=== PATIENT | male | born 1945 | race Caucasian/White ===

== ENCOUNTER 2016-12-24 14:23 | Inpatient (IN) | payer MEDICARE, MEDICAID ==
[2016-12-24] VITALS (12 sets, daily range): BP systolic 91–112; BP diastolic 54–76; PULSE 75–100; RESP 13–21; Ht 170.2 cm; Wt 90.0 kg
[~2016-12-24] VITALS: Ht 170.2 cm; Wt 90.0 kg
[2016-12-24] MEDS ORDERED: FUROSEMIDE 40 MG INJ IV ONE (15:30)
[2016-12-24 16:05] LABS: Allen Test ACCEPTAB; Arterial Base Excess -0.8 mmol/L (-3.0-3); Arterial COHb 0.3 % (0.0-3.0); Arterial Fraction of Oxyhgb 82.1 % (93.0-99.0); Arterial HCO3 24.1 mmol/L (22.0-26.0); Arterial MetHb 0.3 % (0.0-1.5); Arterial Total Hemglobin 11.9 g/dl (12.0-18.0); MODE MASK - NRB
[2016-12-24] MEDS ORDERED: VANCOMYCIN IV PER PHARMACY XX SCH (17:00)
[2016-12-24] MEDS: ALBUTEROL/IPRATROPIUM (NEB) 3 ML AMP HHN SCH ×2 (17:01→20:05)
[2016-12-24 17:12] LABS: INR 1.11; PROTIME 14.3 Sec (12.2-14.2); PT RATIO 1.1
[2016-12-24 17:13] LABS: PARTIAL THROMBOPLASTIN TIME 38.8 Sec (25.0-35.0)
[2016-12-24 17:14] LABS: CREATINE KINASE 27 IU/L (23-200); MAGNESIUM 2.1 mg/dl (1.7-2.5)
[2016-12-24 17:35] LABS: CK-MB 1.46 ng/ml (0.0-2.4); TROPONIN-I < 0.012 ng/ml (0.00-0.12)
[2016-12-24] MEDS ORDERED: VANCOMYCIN 1.75 GM in NS 500 ML IVPB SCH (18:00)
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
[2016-12-24] MEDS: FAMOTIDINE 20 MG INJ IV SCH (20:17)
--- NOTE | 2016-12-24 20:19 | RADRPT ---
PROCEDURE: Ultrasound of the bilateral lower extremity venous system. CLINICAL INDICATION: Bilateral leg pain and swelling, deep venous thrombosis TECHNIQUE: Watkins scale with and without compression, color doppler, spectral doppler of the venous system of the bilateral lower extremities was performed. Venous augmentation maneuvers were utilized . COMPARISON: No prior studies are available for comparison. FINDINGS: RIGHT: Common femoral vein: Patent. Superficial femoral vein: Patent. Popliteal vein: Patent. Calf veins: Patent. No soft tissue abnormalities are identified. LEFT: Common femoral vein: Patent. Superficial femoral vein: Patent. Popliteal vein: Patent. Calf veins: Patent. No soft tissue abnormalities are identified. IMPRESSION: No evidence of a deep vein thrombosis within the bilateral lower extremities. RPTAT: AADD .Rome Storm MD, Date Time Electronically viewed and signed by .Rome Storm MD, on 12/24/2016 20:19 .B/
[2016-12-24] MEDS: SALMETEROL/FLUTICASONE 250/50 INHA INH SCH (20:27)
[2016-12-24] MEDS: MUPIROCIN 2% 22 GM OINT TOP SCH (20:27)
[2016-12-24] MEDS ORDERED: FUROSEMIDE 40 MG INJ IV SCH (21:00)
[2016-12-24] MEDS: CEFEPIME 1GM/50 ML (PMX) 50 ML IVPB SCH (21:41)
[2016-12-24 23:11] LABS: TROPONIN-I 0.02 ng/ml (0.00-0.12)
[2016-12-24 23:13] LABS: CK-MB 1.28 ng/ml (0.0-2.4)
[2016-12-25] VITALS (28 sets, daily range): BP systolic 66–118; BP diastolic 42–96; PULSE 87–120; RESP 14–34
[2016-12-25] MEDS: LORAZEPAM 2 MG INJ IV PRN ×2 (01:58→17:47)
[2016-12-25] MEDS ORDERED: ALTEPLASE (CATHFLO) 2 MG INJ CATHETER PRN (02:30)
[2016-12-25 04:35] LABS: ADD SCAN DIFF NO
[2016-12-25] MEDS: ALBUTEROL/IPRATROPIUM (NEB) 3 ML AMP HHN SCH ×5 (04:43→16:31)
[2016-12-25 05:01] LABS: ABNORMAL IP MESSAGE 1; HEMOGLOBIN 8.9 g/dl (14.0-18.0); MEAN CORPUSCULAR VOLUME 103.1 fl (82.0-101.0); MEAN PLATELET VOLUME 10.3 fl (7.4-10.4); PLATELET COUNT 55 10^3/UL (140-415); RED BLOOD COUNT 2.62 10^6/ul (4.70-6.10); RED CELL DISTRIBUTION WIDTH 16.9 % (11.5-14.5); WHITE BLOOD COUNT 6.6 10^3/ul (4.8-10.8)
[2016-12-25 05:07] LABS: ALBUMIN 2.8 g/dl (3.3-4.9); POTASSIUM 4.3 mmol/L (3.5-5.1)
[2016-12-25 05:10] LABS: CREATININE 1.54 mg/dl (0.61-1.24)
[2016-12-25 05:11] LABS: CALCIUM 8.1 mg/dl (8.4-10.2)
[2016-12-25 05:18] LABS: TROPONIN-I 0.022 ng/ml (0.00-0.12)
--- NOTE | 2016-12-25 05:46 | HP ---
DATE OF ADMISSION: 12/24/2016 PRESENTING COMPLAINT: Respiratory failure. HISTORY OF PRESENTING COMPLAINT: Mr. Sandoval is a 71-year-old male with a history of nonsmall heather l carcinoma of the lung for which, per report, he has undergone chemo and radiation, chronic respira tory failure, sepsis, and bilateral pneumonia who was sent to the emergency room today from the [facility] [place] because of worsening respiratory distress. The details regarding t he patient's history are very unclear because there is no detailed H and P on the chart or in the [facility] record, and the patient is completely unable to give any history as he is mildly encephalopat hic from hypoxemia. The patient's family is not at the bedside. I tried to speak with his by telephone and obtain the history from her, but she was too upset about her 's condition to gi ve me a detailed history. Based on my preliminary assessment, this patient is in severe respiratory failure and is refusing aggressive intervention like BiPAP and endotracheal intubation, and he is s aturating in the 80s on nonrebreather mask. He is currently not requiring pressor therapy yet, and it is my understanding that he has been on broad-spectrum antibiotics. Despite all that, he is stil l not doing very well. I have ordered that he get immediately 1 dose of IV Lasix 40 mg, and further interventions will be summarized below. PAST MEDICAL HISTORY: 1. Hypothyroidism. 2. Zrq-kjhcw-wysq lung cancer status post radiation and chemo. 3. Chronic obstructive pulmonary disease. 4. Bilateral pneumonia. 5. Hypertension. 6. Diabetes mellitus. 7. Obesity. 8. Chronic kidney disease. 9. Dyslipidemia. PAST SURGICAL HISTORY: Unknown. ALLERGIES: 1. BACTRIM. 2. CODEINE. 3. HYDROCODONE. PREVIOUS MEDICATIONS: 1. Bactroban. 2. DuoNeb. 3. Allopurinol. 4. Xanax. 5. Lipitor. 6. Tessalon Perles. 7. Pulmicort. 8. Sliding scale insulin. 9. Pravastatin. 10. Nystatin. 11. Flomax. SOCIAL HISTORY: Previous smoker. That is all we know. FAMILY HISTORY: Unobtainable due to the patient's condition. PHYSICAL EXAMINATION: VITAL SIGNS: Temperature 98.2, pulse 93, respirations 15, blood pressure 112/55 on admission, satur ation with goal between 84 and 95% on nonrebreather mask. GENERAL: Obese, elderly male who does not look good, very ill-looking, either diffusely edematous _ ___ obesity with obvious respiratory distress despite nonrebreather mask; however, the patient is co nscious enough to aggressively refuse the BiPAP mask when we attempt to put it on him and also consc ious enough to say "no, I don't want it" when he was asked if he would like to be intubated. HEENT: Other than that, his head was normocephalic, and he does have chronic ischemic changes showi ng a level of ecchymosis diffusely, but there was no evidence of acute trauma. His pupils were equa l and reactive. He had a nonrebreather mask in place. NECK: Assessment was difficulty due to obesity, but he did have JVD on the left side. CARDIOVASCULAR: Heart sounds were S1 and S2 with stage III/ systolic murmur. RESPIRATORY: Quiet reduced breath sounds bilaterally. I could not auscultate the bases due to obes ity. ABDOMEN: Full, soft, did not seem overtly tender, hypoactive bowel sounds were noted. EXTREMITIES: ____ ecchymotic in all 4 extremities. The patient was seen to move all 4 extremities at this time. NEUROLOGIC: Even though the patient is alert and is able to tell me his name and seems to know wher e he is, he does look slightly obtunded. PSYCHIATRIC: Could not be assessed. LABORATORY DATA: ABG: pH 7.3, pCO2 of 40, pO2 47.2, and bicarbonate 24.1. 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 WBC count is normal at 6.7. He also has bandemia. On his chemistry, his glucose was abnormal at 168 a nd calcium 8.1. Note that these are labs from early this morning at [place]. Serum sodium was 129. Potassium was normal. His chloride was 95 ____. BUN and creatinine were elevated at 54 and 1.30. Uric acid was normal. LFTs were normal. TSH was normal. Free T4 was normal. ____. A chest x-ra y I reviewed was suggestive of cardiomegaly and bilaterally effusions as well as bilateral infiltrat es. ASSESSMENT: A 71-year-old male sent to us from [place] for respiratory failure, ____. 1. Acute respiratory insufficiency with impending respiratory failure. 2. Severe sepsis with bandemia secondary to bilateral pneumonia contributing to #1. 3. Bilateral pneumonia. 4. Probable congestive heart failure. 5. Diabetes mellitus with ____ control. 6. Chronic thrombocytopenia with megaloblastosis as well as hypochromasia concerning for probable l iver injury or chronic liver disease. 7. Dyslipidemia. 8. Obesity. 9. Positive methicillin-resistant Staphylococcus aureus nares. 10. Chronic kidney disease. Baseline creatinine not known at this time. 11. Chronic hypothyroidism. 12. History of hypertension with good control. 13. Hyponatremia. 14. History of vyr-mnhkx-zqtm carcinoma of the lung status post radiation and chemo. PLAN: 1. ICU admit. 2. Ideally, the patient will benefit from BiPAP therapy, but as mentioned earlier, the patient is v chago clear that he does not want this intervention even while understanding that he might if he d oes not get it. It is unclear exactly how much the patient understands, and as such, I have reached out to the patent's to determine goals of care. I spoke with the patient's daughter and his w marga. I explained the fact that the patient could not continue on a simple mask indefinitely based o n his current clinical status. I explained that, at this point, ____ the patient was on BiPAP thera py, but he is aggressively refusing this. He might require endotracheal intubation if he does not i sreedharove. I asked if they had discussed goals of care, and she reported that they had not. I told he r to discuss with her purona-pc-nvr and get back to me. About half an hour later, she called me navid connelly to let me know that the family is there and they do not want the patient to be intubated and they do not want chest compressions but they want everything else. I did have ____ in that case, BiPAP w ould be the next plan of care bur the patient is refusing this adamantly, and she said it is okay to keep the patient off BiPAP. We will leave the patient off BiPAP for now and try and aggressively o ptimize respiratory status using diuresis as well as ____ therapy. We will continue empiric broad s pectrum antibiotics, obtain pulmonary, infectious disease, as well as cardiology consultation to ass ess ____. The patient will also require nephrology consultation as well. The patient's prognosis i s quite grim and guarded. Further interventions will depend on his response ____ intervention and i f his respiratory status improves. Prophylaxis, he will be on intravenous PPI therapy versus H2 blo cker and is not a candidate for anticoagulation because of thrombocytopenia. He was put on ____. I will also rule out thrombosis in all 4 extremities. As mentioned earlier, further intervention jabari l depend on response to current interventions. Dictated By: NELSON GALLO MD, BA/RITO Conf#: [id number] DID#: [id number]
[2016-12-25] MEDS ORDERED: FUROSEMIDE 40 MG INJ IV SCH (06:00)
[2016-12-25 06:07] LABS: CK-MB 1.43 ng/ml (0.0-2.4)
[2016-12-25] MEDS ORDERED: DEXTROSE 50% 50 ML SYRINGE ONE (06:54)
[2016-12-25 06:56] LABS: CHOL/HDL RATIO 3.1 RATIO
[2016-12-25] MEDS: DEXTROSE 50% 50 ML SYRINGE IV PRN ×2 (07:20→13:10)
[2016-12-25 07:55] LABS: ADD UMIC YES; URINE BILIRUBIN (Dip) NEGATIVE (NEGATIVE); URINE BLOOD (Dip) 1+ (NEGATIVE); URINE COLOR LT. YELLOW (YELLOW); URINE GLUCOSE (Dip) NEGATIVE (NEGATIVE); URINE KETONES (Dip) NEGATIVE (NEGATIVE); URINE LEUKOCYTE ESTERASE (Dip) NEGATIVE (NEGATIVE); URINE NITRITE (Dip) NEGATIVE (NEGATIVE); URINE TOTAL PROTEIN (Dip) NEGATIVE (NEGATIVE); URINE UROBILINOGEN (Dip) 0.2 E.U./dL (0.1-1.0)
[2016-12-25 08:07] LABS: URINE RBCS 0-2 /HPF (0)
[2016-12-25] MEDS: SALMETEROL/FLUTICASONE 250/50 INHA INH SCH (08:22)
[2016-12-25 08:54] LABS: LYMPHOCYTES # 0.3 10^3/ul (0.8-2.9); MONOCYTE # 0.1 10^3/ul (0.3-0.9); NEUTROPHIL # 2.8 10^3/ul (1.6-7.5)
[2016-12-25] MEDS: FAMOTIDINE 20 MG INJ IV SCH (08:59)
[2016-12-25] MEDS: CEFEPIME 1GM/50 ML (PMX) 50 ML IVPB SCH (08:59)
[2016-12-25] MEDS: ACCUCHECK XX SCH ×3 (09:00→16:13)
[2016-12-25] MEDS: MUPIROCIN 2% 22 GM OINT TOP SCH (09:00)
[2016-12-25] MEDS ORDERED: DEXTROSE 5%-0.9% NACL 1,000 ML IV SCH (10:00)
--- NOTE | 2016-12-25 11:04 | CONS ---
Date/Time of Note Date/Time of Note DATE: 12/25/16 TIME: 11:00 Assessment/Plan Assessment/Plan Additional Assessment/Plan Chest x-ray was reviewed from yesterday morning which is showing bilateral infiltrative changes. ABG and blood work also was reviewed. Next Assessment recommendations; next 1. Patient admitted with severe hypoxemic respiratory failure currently on BiPAP. 2. History of non-small cell lung cancer likely involving the left lower lobe status post radiation and chemotherapy. 3. Renal insufficiency. 4. Thrombocytopenia. 5. Hypertension. 6. History of diabetes. 7. Bilateral pneumonia. Continue current supportive care. Patient prognosis is extremely poor. Comfort care measures would be appropriate to initiate. Patient also can be transferred back to [facility]. Consultation Date/Type/Reason Admit Date/Time Dec 24, 2016 at 14:23 Initial Consult Date Type of Consultation: Pulmonary/critical care 24 HR Interval Summary Free Text/Dictation Patient condition remains tenuous at best. Offered over from [facility] for severe hypoxemia. Which was refractory to 100% nonrebreather. Remains essentially unresponsive now. Family has decided to make him a DNR. General exam; elderly male, on BiPAP. Unresponsive. Exam/Review of Systems Vital Signs Vitals Vital Signs Date Time Temp Pulse Resp B/P Pulse Ox O2 Delivery O2 Flow Rate FiO2 12/25/16 10:00 118 23 96/46 92 BIPAP 12/25/16 08:00 99.3 12/25/16 05:30 100 12/24/16 23:30 15.0 Intake and Output 12/24/16 12/24/16 12/25/16 15:00 23:00 07:00 Intake Total 50 ml Output Total 625 ml 295 ml Balance -575 ml -295 ml Exam H EENT examination; supple neck, JVD difficult to see because of short neck. Patient is edentulous. No neck masses. No thyromegaly. Chest examination KS: Diminished breath sounds throughout. S1-S2 audible, no murmurs. Regular rhythm. Abdomen examination; soft, nondistended. No organomegaly. Bowel sounds are sluggish. Extremity exam; no peripheral edema. VEGETABLES COOK exam is; patient is unresponsive. Results Result Diagram: 12/25/16 0400 12/25/16 0400 Results 24 hrs Laboratory Tests Test 12/24/16 15:46 3/11/17 16:30 12/24/16 17:46 12/24/16 21:40 Arterial Blood HCO3 24.1 Arterial Blood Base Excess -0.8 Arterial Blood Oxygen Saturation 82.6 L Jacobo Test ACCEPTAB Arterial Blood Gas Puncture Site Left Radial Arterial Blood Carboxyhemoglobin 0.3 Arterial Blood Date Drawn 12/24/2016 3:50:13 PM Arterial Blood Methemoglobin 0.3 Arterial Blood pCO2 (Temp correct) 40.8 Arterial Blood pH (Temp corrected) 7.390 Arterial Blood pO2 (Temp corrected) 47.2 *L Blood Gas A-a O2 Differential 625.0 H Blood Gas Actual Respiration Rate 22 Blood Gas Critical Value Read Back Bean CHOUDHARY RN Blood Gas Modality MASK - NRB Blood Gas Notified Time 12/24/2016 4:04:52 PM Blood Gas Notified Whom Harris DURÁN Blood Gas Specimen Source Blood arterial Blood Gas Temperature 37.0 FiO2 100.0 Oxyhemoglobin Percent 82.1 L Total Hemoglobin 11.9 L Activated Partial Thromboplast Time 38.8 H Creatine Kinase 27 Creatine Kinase Index 5.4 Creatinine Kinase MB (Mass) 1.46 INR International Normalized Ratio 1.11 Lactic Acid Level 0.8 Magnesium Level 2.1 Phosphorus Level 4.0 Prothrombin Time 14.3 H Prothrombin Time Ratio 1.1 Troponin I < 0.012 Urine Bilirubin NEGATIVE Urine Clarity CLEAR Urine Color LT. YELLOW Urine Glucose NEGATIVE Urine Hemoglobin 1+ H Urine Ketones NEGATIVE Urine Leukocyte Esterase NEGATIVE Urine Microscopic RBC 0-2 Urine Microscopic WBC NONE SEEN Urine Nitrite NEGATIVE Urine Specific Van Lear 1.010 Urine Total Protein NEGATIVE Urine Urobilinogen 0.2 E.U./dL Urine pH 5.0 Bedside Glucose 70 Test 12/24/16 22:36 12/25/16 02:06 12/25/16 04:00 12/25/16 06:56 Creatine Kinase 29 22 L Creatine Kinase Index 4.4 6.5 Creatinine Kinase MB (Mass) 1.28 1.43 Troponin I 0.020 0.022 Bedside Glucose 70 43 *L Albumin 2.8 L Anion Gap 14 Band Neutrophils % 51.0 H Blood Urea Nitrogen 57 H Calcium Level 8.1 L Carbon Dioxide Level 25 Chloride Level 97 Cholesterol Level 93 L Cholesterol/HDL Ratio 3.1 Creatinine 1.54 H Eosinophils # Eosinophils % Glucose Level 44 #*L HDL Cholesterol 30 L Hematocrit 27.0 L Hemoglobin 8.9 L Hemoglobin A1c 8.1 H LDL Cholesterol, Calculated 42 Lymphocytes # 0.3 L Lymphocytes % 4.0 L Mean Corpuscular Hemoglobin 34.0 H Mean Corpuscular Hemoglobin Concent 33.0 Mean Corpuscular Volume 103.1 H Mean Platelet Volume 10.3 Metamyelocytes # 0.1 Metamyelocytes % 1.0 H Monocytes # 0.1 L Monocytes % 1.0 Neutrophils # 2.8 Neutrophils % 43.0 Phosphorus Level 5.0 H Platelet Count 55 L Potassium Level 4.3 Red Blood Count 2.62 L Red Cell Distribution Width 16.9 H Sodium Level 132 L Triglycerides Level 116 White Blood Count 6.6 Test 12/25/16 07:19 12/25/16 07:44 12/25/16 09:15 Bedside Glucose 182 117 73 Medications Medications Current Medications Famotidine 20 mg 20 mg BID IV Last administered on 12/25/16 08:59; Admin Dose 20 MG; Start 12/24/16 at 21:00 Cefepime HCl (Maxipime 1gm/50 ml (Pmx)) 50 ml @ 100 mls/hr Q12 IVPB Last administered on 12/25/16 08:59; Admin Dose 100 MLS/HR; Start 12/24/16 at 21:00 Salmeterol Xinafoate/ Fluticasone (Advair 250/50 Diskus) 1 inh BID INH Last administered on 12/24/16 20:27; Admin Dose 1 INH; Start 12/24/16 at 21:00 Mupirocin 1 applic 1 applic BID TOP Last administered on 12/25/16 09:00; Admin Dose 1 APPLIC; Start 12/24/16 at 21:00; Stop 12/31/16 at 20:59 Vancomycin HCl/ Sodium Chloride (Vancocin/NS) 250 ml @ 83.333 mls/ hr Q24H IVPB ; Start 12/25/16 at 18:00 Lorazepam (Ativan) 0.25 mg Q1HWA PRN IV AGITATION/ANXIETY Last administered on 12/25/16 01:58; Admin Dose 0.25 MG; Start 12/24/16 at 23:30 Diagnostic Test (Pha) (Accucheck) 1 ea Q4 XX Last administered on 12/25/16 09: 00; Admin Dose 1 EA; Start 12/25/16 at 09:00 Dextrose 50 ml 50 ml PRN PRN IV DECREASED GLUCOSE Last administered on 07:20; Admin Dose 50 ML; Start 12/25/16 at 07:30 Dextrose/Sodium Chloride (D5-NS) 1,000 ml @ 40 mls/hr Q24H IV Last administered on 12/25/16 10:00; Admin Dose 40 MLS/HR; Start 12/25/16 at 10:00 SELWYN FOWLER Dec 25, 2016 11:04
--- NOTE | 2016-12-25 11:17 | PN ---
DATE: 12/25/2016 CARDIOLOGY FOLLOWUP SUBJECTIVE: Discussed with the staff. Rhythm strip was reviewed. The patient remains on BiPAP in the ICU. The patient has been taking the mask off. Discussed with the staff. Remains in sinus rhy thm, sinus tachycardia with frequent PVCs. MEDICATIONS: Reviewed. OBJECTIVE: VITAL SIGNS: Temperature 98.4, heart rate 110, blood pressure 103/58, respiration rate of 20, satur ating 91% on BiPAP. HEENT: Normocephalic, atraumatic. Appears to be in respiratory distress. CARDIOVASCULAR: Tachycardic. PULMONARY: Mild rhonchi, diffuse. GASTROINTESTINAL: Obese, soft. EXTREMITIES: Positive edema. NEUROLOGIC: Awake, responds appropriately. LABORATORY: Sodium 132, potassium 4.3, BUN of 57, creatinine 1.54, glucose 44. Lower extremity ult rasound shows no evidence of DVT of the bilateral lower extremities. ASSESSMENT AND PLAN: 1. Hypoxemic hypercapnic respiratory failure. 2. Chronic obstructive pulmonary disease. 3. History of lung carcinoma. 4. Sinus tachycardia secondary to above. 5. Diabetes with episodes hypoglycemia this morning. 6. Hypertension, currently stable. 7. Thyroid disorder. RECOMMENDATIONS: We will continue with the respiratory care. BiPAP as needed will be continued. C ontinue with the ICU care. Continue with diuresis for now. Code status DNR, and prognosis is guard ed. Dictated By: BRONWYN CRAWFORD/RITO Conf#: [id number] DID#: [id number]
--- NOTE | 2016-12-25 11:37 | RADRPT ---
PROCEDURE: XR Chest. CLINICAL INDICATION: Shortness of breath. TECHNIQUE: Single frontal view. COMPARISON: 12/24/2016. FINDINGS: The right arm PICC line is in satisfactory position. Patchy bilateral pulmonary airspace and inters titial disease is unchanged with left worse than right. The heart is enlarged. There is calcification in the aorta consistent with atherosclerosis. There are small bilateral pleural effusions with left larger than right. There is no pneumothorax. IMPRESSION: 1. No change from 12/24/2016. RPTAT: QQ .Piter Watters MD, MD Date Time Electronically viewed and signed by .Piter Watters MD, MD on 12/25/2016 11:37 .R/
--- NOTE | 2016-12-25 14:13 | PN ---
DATE: 12/25/2016 SUBJECTIVE: Yesterday, the patient was seen by myself at [facility]. The patient had a clinical decline and was transferred to the intensive care unit, was placed on BiPAP overnight . The patient has been critical but stable. There have been no reports of hemoptysis, hematemesis or hematochezia. OBJECTIVE: VITAL SIGNS: Blood pressure is currently 118/96, respirations 24, pulse 97, temperature 99.3. I's AND O'S: The patient had 50 in, 890 out. HEENT: Head is normocephalic. NECK: Supple. HEART: Regular rate. LUNGS: Show diminished breath sounds at base. Positive rhonchi. ABDOMEN: Soft, nontender to palpation. No rebound or guarding. EXTREMITIES: Negative for clubbing, cyanosis. Trace edema. DERMATOLOGIC: No rashes. MUSCULOSKELETAL: No joint effusions. NEUROLOGIC: No focal deficits. IMAGING STUDIES: Renal ultrasound shows bilateral hyperechoic kidneys consistent with medical renal disease, distended urinary bladder. Doppler ultrasound negative for DVT. Chest x-ray shows bilate ral airspace disease and left pleural effusion. LABORATORY DATA: Shows a white count 6.6, hemoglobin 8.9, hematocrit 27.0, platelet count is 55. H emoglobin A1c 8.1. Sodium 132, potassium 4.3, BUN 57, creatinine 1.54. Urinalysis was reviewed. ASSESSMENT AND PLAN: This is a 71-year-old male who presents with: 1. Nonoliguric acute kidney injury on top of chronic kidney disease stage IIIB/IV with a baseline c reatinine around 1.5 mg/dL. Etiology of acute kidney injury was secondary to hemodynamics. The pat ient's renal function is currently returned to baseline. The patient's urinalysis was reviewed, non active sediment, therefore a low suspicion for acute ____vasculitis or interstitial nephritis. Plan at this point is to continue current treatment plan, supportive care, renally dose medications, evelyn id nephrotoxins. 2. Hyponatremia, etiology is secondary to syndrome of inappropriate antidiuretic hormone. The gia ent has been placed on free water restriction of no more than 800 mL daily. We will continue to mon itor. 3. Mineral bone disorder. Will monitor calcium and phosphorus levels. No need for phosphate binde rs. 4. Anemia. We will monitor hemoglobin and hematocrit levels. Will give Epogen as needed. 5. Acute hypoxemic hypercarbic respiratory failure secondary to advanced chronic obstructive pulmon gela disease. The patient is currently on BiPAP. Will continue. Continue nebulizer therapy. Follo w up with pulmonary. 6. Sepsis secondary to bilateral pneumonia. Continue current antibiotic regimen. 7. Diabetes, continue Accu-Cheks and sliding scale. 8. Chronic kidney disease, stage IIIB/IV. Etiology secondary to diabetes, hypertension. The patie nt has had acute kidney injury as stated above. Continue disease factor modification. Continue to treat underlying acute kidney injury as stated above and monitor. 9. Hypothyroidism. Continue Synthroid. 10. Hypertension. Continue current blood pressure regimen. 11. History of nonsmall CA status post radiation and chemotherapy. 12. Dyslipidemia. Continue statin therapy. 13. Questionable diastolic heart failure. The patient currently is on diuretic therapy. We will m onitor closely I's and O's. Follow up 2D echo. Follow up with Cardiology. Please note I spent over 40 minutes of critical care time with this patient and discussed the case w ith the hospital staff. Dictated By: JI RUSS/RITO Conf#: [id number] DID#: [id number]
--- NOTE | 2016-12-25 14:25 | PN ---
Date/Time of Note Date/Time of Note DATE: 12/25/16 TIME: 14:12 Assessment/Plan VTE Prophylaxis VTE Prophylaxis Intervention: SCD's VTE Contraindication Reason: thrombocytopenia Lines/Catheters IV Catheter Type (from Nrsg): PICC Line Central line still needed: Yes Urinary Cath still in place: Yes Reason Cath still needed: other (indicate) Assessment/Plan Assessment/Plan A 71-year-old male sent to us from [place] for respiratory failure, 1. Acute respiratory failure now on bipap. 2. Severe sepsis with bandemia secondary to bilateral pneumonia contributing to #1. 3. Bilateral pneumonia. 4. Probable congestive heart failure. 5. Diabetes mellitus with poor control / A1C 8.1 6. Chronic thrombocytopenia with megaloblastosis as well as hypochromasia concerning for probable liver injury or chronic liver disease. 7. Dyslipidemia. 8. Obesity. 9. Positive methicillin-resistant Staphylococcus aureus nares. 10. Chronic kidney disease. Baseline creatinine not known at this time. 11. Chronic hypothyroidism. 12. History of hypertension with good control. 13. Hyponatremia. 14. 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 15. Acute encephalopathy 2/2 hypoxia PLAN: * Continue ICU mgt and bipap support * Continue aggressive diuresis and abx therapy / ID consult / f/u cultures * Continue inhaled bronchodilators and steroids * Patient is currently NPO on D51/2 / continue SSI * Continue isolation precautions * Continue supportive care PROPHYLAXIS: SCDs with caution, for edema / Pepcid CRITICAL CARE TIME: >35 mins Subjective 24 Hr Interval Summary Free Text/Dictation now on bipap, 100% Fio2 altered Subjective hx not possible: pt critical status Exam/Review of Systems Vital Signs Vitals Vital Signs Date Time Temp Pulse Resp B/P Pulse Ox O2 Delivery O2 Flow Rate FiO2 12/25/16 12:47 111 25 91 100 12/25/16 12:38 95/62 BIPAP 12/25/16 12:00 99.7 12/24/16 23:30 15.0 Intake and Output 12/24/16 12/24/16 12/25/16 15:00 23:00 07:00 Intake Total 50 ml Output Total 625 ml 295 ml Balance -575 ml -295 ml Exam Constitutional: distress, non-verbal, obese, No alert Head: normocephalic Eyes: PERRL, other (periorbital puffiness and edematous lids) ENMT: other (bipap mask) Respiratory: diminished breath sounds, labored breathing, other (coarse breath sounds) Cardiovascular: murmurs/extra sounds (3/6 systolic), regular rate and rhythm Gastrointestinal: bowel sounds, soft Extremities: edema Neurological: confused, lethargic, No nl mental status Skin: ecchymosis Results Result Diagram: 12/25/16 0400 12/25/16 0400 Results 24 hrs Laboratory Tests Test 12/24/16 15:46 12/24/16 16:30 12/24/16 17:46 12/24/16 21:40 Arterial Blood HCO3 24.1 Arterial Blood Base Excess -0.8 Arterial Blood Oxygen Saturation 82.6 L Jacobo Test ACCEPTAB Arterial Blood Gas Puncture Site Left Radial Arterial Blood Carboxyhemoglobin 0.3 Arterial Blood Date Drawn 12/24/2016 3:50:13 PM Arterial Blood Methemoglobin 0.3 Arterial Blood pCO2 (Temp correct) 40.8 Arterial Blood pH (Temp corrected) 7.390 Arterial Blood pO2 (Temp corrected) 47.2 *L Blood Gas A-a O2 Differential 625.0 H Blood Gas Actual Respiration Rate 22 Blood Gas Critical Value Read Back Bean CHOUDHARY RN Blood Gas Modality MASK - NRB Blood Gas Notified Time 12/24/2016 4:04:52 PM Blood Gas Notified Michelle DURÁN Blood Gas Specimen Source Blood arterial Blood Gas Temperature 37.0 FiO2 100.0 Oxyhemoglobin Percent 82.1 L Total Hemoglobin 11.9 L Activated Partial Thromboplast Time 38.8 H Creatine Kinase 27 Creatine Kinase Index 5.4 Creatinine Kinase MB (Mass) 1.46 INR International Normalized Ratio 1.11 Lactic Acid Level 0.8 Magnesium Level 2.1 Phosphorus Level 4.0 Prothrombin Time 14.3 H Prothrombin Time Ratio 1.1 Troponin I < 0.012 Urine Bilirubin NEGATIVE Urine Clarity CLEAR Urine Color LT. YELLOW Urine Glucose NEGATIVE Urine Hemoglobin 1+ H Urine Ketones NEGATIVE Urine Leukocyte Esterase NEGATIVE Urine Microscopic RBC 0-2 Urine Microscopic WBC NONE SEEN Urine Nitrite NEGATIVE Urine Specific [place] 1.010 Urine Total Protein NEGATIVE Urine Urobilinogen 0.2 E.U./dL Urine pH 5.0 Bedside Glucose 70 Test 12/24/16 22:36 12/25/16 02:06 12/25/16 04:00 12/25/16 06:56 Creatine Kinase 29 22 L Creatine Kinase Index 4.4 6.5 Creatinine Kinase MB (Mass) 1.28 1.43 Troponin I 0.020 0.022 Bedside Glucose 70 43 *L Albumin 2.8 L Anion Gap 14 Band Neutrophils % 51.0 H Blood Urea Nitrogen 57 H Calcium Level 8.1 L Carbon Dioxide Level 25 Chloride Level 97 Cholesterol Level 93 L Cholesterol/HDL Ratio 3.1 Creatinine 1.54 H Eosinophils # Eosinophils % Glucose Level 44 #*L HDL Cholesterol 30 L Hematocrit 27.0 L Hemoglobin 8.9 L Hemoglobin A1c 8.1 H LDL Cholesterol, Calculated 42 Lymphocytes # 0.3 L Lymphocytes % 4.0 L Mean Corpuscular Hemoglobin 34.0 H Mean Corpuscular Hemoglobin Concent 33.0 Mean Corpuscular Volume 103.1 H Mean Platelet Volume 10.3 Metamyelocytes # 0.1 Metamyelocytes % 1.0 H Monocytes # 0.1 L Monocytes % 1.0 Neutrophils # 2.8 Neutrophils % 43.0 Osmolality 286 Phosphorus Level 5.0 H Platelet Count 55 L Potassium Level 4.3 Red Blood Count 2.62 L Red Cell Distribution Width 16.9 H Sodium Level 132 L Triglycerides Level 116 White Blood Count 6.6 Test 12/25/16 07:19 12/25/16 07:44 12/25/16 09:15 12/25/16 13:08 Bedside Glucose 182 117 73 62 L Test 12/25/16 13:28 Bedside Glucose 222 H Medications Medications Current Medications Famotidine 20 mg 20 mg BID IV Last administered on 12/25/16 08:59; Admin Dose 20 MG; Start 12/24/16 at 21:00 Cefepime HCl (Maxipime 1gm/50 ml (Pmx)) 50 ml @ 100 mls/hr Q12 IVPB Last administered on 12/25/16 08:59; Admin Dose 100 MLS/HR; Start 12/24/16 at 21:00 Salmeterol Xinafoate/ Fluticasone (Advair 250/50 Diskus) 1 inh BID INH Last administered on 12/24/16 20:27; Admin Dose 1 INH; Start 12/24/16 at 21:00 Mupirocin 1 applic 1 applic BID TOP Last administered on 12/25/16 09:00; Admin Dose 1 APPLIC; Start 12/24/16 at 21:00; Stop 12/31/16 at 20:59 Vancomycin HCl/ Sodium Chloride (Vancocin/NS) 250 ml @ 83.333 mls/ hr Q24H IVPB ; Start 12/25/16 at 18:00 Lorazepam (Ativan) 0.25 mg Q1HWA PRN IV AGITATION/ANXIETY Last administered on 12/25/16 01:58; Admin Dose 0.25 MG; Start 12/24/16 at 23:30 Diagnostic Test (Pha) (Accucheck) 1 ea Q4 XX Last administered on 12/25/16 13: 09; Admin Dose 1 EA; Start 12/25/16 at 09:00 Dextrose 50 ml 50 ml PRN PRN IV DECREASED GLUCOSE Last administered on 13:10; Admin Dose 50 ML; Start 12/25/16 at 07:30 Dextrose/Sodium Chloride (D5-NS) 1,000 ml @ 40 mls/hr Q24H IV Last administered on 12/25/16 10:00; Admin Dose 40 MLS/HR; Start 12/25/16 at 10:00 Miscellaneous Information (*Rx Drug Level Order Reminder*) VANCOMYCIN TROUGH AT 1700 ONCE ONCE XX ; Start 12/26/16 at 17:00; Stop 12/26/16 at 17:01 Procedures Procedures PROCEDURE: XR Chest. CLINICAL INDICATION: Shortness of breath. TECHNIQUE: Single frontal view. COMPARISON: 12/24/2016. FINDINGS: The right arm PICC line is in satisfactory position. Patchy bilateral pulmonary airspace and interstitial disease is unchanged with left worse than right. The heart is enlarged. There is calcification in the aorta consistent with atherosclerosis. There are small bilateral pleural effusions with left larger than right. There is no pneumothorax. IMPRESSION: 1. No change from 12/24/2016. RPTAT: QQ .Piter Watters MD, MD Date Time Electronically viewed and signed by .Piter Watters MD, on 12/25/2016 11:37 .R/ CC: NELSON GALLO PROCEDURE: Ultrasound of the bilateral lower extremity venous system. CLINICAL INDICATION: Bilateral leg pain and swelling, deep venous thrombosis TECHNIQUE: Watkins scale with and without compression, color doppler, spectral doppler of the venous system of the bilateral lower extremities was performed. Venous augmentation maneuvers were utilized. COMPARISON: No prior studies are available for comparison. FINDINGS: RIGHT: Common femoral vein: Patent. Superficial femoral vein: Patent. Popliteal vein: Patent. Calf veins: Patent. No soft tissue abnormalities are identified. LEFT: Common femoral vein: Patent. Superficial femoral vein: Patent. Popliteal vein: Patent. Calf veins: Patent. No soft tissue abnormalities are identified. IMPRESSION: No evidence of a deep vein thrombosis within the bilateral lower extremities. RPTAT: AADD .Rome Storm MD, MD Date Time Electronically viewed and signed by .Rome Storm MD, on 12/24/2016 20:19 .B/ CC: NELSON GALLO BOLATITO M. Dec 25, 2016 14:24
[2016-12-25 15:50] LABS: ADD UMIC YES; URINE BILIRUBIN (Dip) NEGATIVE (NEGATIVE); URINE BLOOD (Dip) 3+ (NEGATIVE); URINE COLOR LT. YELLOW (YELLOW); URINE GLUCOSE (Dip) NEGATIVE (NEGATIVE); URINE KETONES (Dip) NEGATIVE (NEGATIVE); URINE LEUKOCYTE ESTERASE (Dip) NEGATIVE (NEGATIVE); URINE NITRITE (Dip) NEGATIVE (NEGATIVE); URINE TOTAL PROTEIN (Dip) TRACE (NEGATIVE); URINE UROBILINOGEN (Dip) 0.2 E.U./dL (0.1-1.0)
[2016-12-25] MEDS ORDERED: DAPTOMYCIN 540 MG in SOD CHLORIDE 0.9% 100 ML IVPB SCH (16:00)
[2016-12-25 16:10] LABS: TRANSITIONAL EPI CELLS,URINE MODERATE; URINE RBCS >50 /HPF (0)
[2016-12-25 16:11] LABS: BACTERIA,URINE MODERATE
[2016-12-25 16:17] LABS: PROTEIN URINE 38.8 mg/dl (0.0-9.9)
[2016-12-25] MEDS ORDERED: ONDANSETRON 4 MG INJ ONE (17:42)
[2016-12-25] MEDS ORDERED: morphine (DRIP) 100 MG/100 ML 100 ML IV SCH (18:00)
[2016-12-25] MEDS ORDERED: VANCOMYCIN 1.5 GM in SOD CHLORIDE 0.9% 250 ML IVPB SCH (18:00)
[2016-12-25] MEDS ORDERED: ONDANSETRON 4 MG INJ IV PRN (18:00)
[2016-12-25] MEDS ORDERED: MORPHINE IV SCH (18:30)
[2016-12-25] MEDS ORDERED: SOD CHLORIDE 0.9% IV SCH (18:30)
--- NOTE | 2016-12-25 18:45 | EN ---
Date/Time of Note Date/Time of Note DATE: 12/25/16 TIME: 18:44 Event Note Medicine Medicine Event Note Call to pronounce patient . Patient flat lined at 1827 Exam: Constitutional: other (unresponsive to deep sternal rub) Eyes: other (pupils fixed and dilated after at least 45s) Neck: other (no carotid pulses palpated or ascultated after at least 45s) Respiratory: other (no respiratory effort noted or ascultated after at least 45s) Cardiovascular: other (no cardiac pulses ascultated after at least 45s) Extremities: other (no femoral pulses palpated after at least 45s ) Neurological: unresponsive Assessment/Plan Patient Pronounced at 1844pm. summary per primary attending. NELSON GALLO Dec 25, 2016 18:45
--- NOTE | 2016-12-25 20:43 | CONS ---
DATE OF ADMISSION: 12/24/2016 DATE OF CONSULTATION: 12/25/2016 TYPE OF CONSULTATION: Infectious Disease. REASON FOR CONSULTATION: Antibiotic management. HISTORY OF PRESENT ILLNESS: Homero Sandoval is a 71-year-old male who comes in with respiratory f ailure and is being seen for antibiotic management. His past problems include: 1. History of nonsmall cell carcinoma of the lung for which he has undergone chemotherapy and radia tion. 2. Chronic respiratory failure. 3. Sepsis. 4. Bilateral pneumonia. 5. COPD. 6. Hypertension. 7. Diabetes mellitus. 8. Obesity. 9. Chronic renal disease. 10. Dyslipidemia. 11. ALLERGIES TO BACTRIM, CODEINE AND HYDROCODONE. Acutely, the patient was sent to the emergency room from [facility] for worsening respiratory distress. The patient is mildly encephalopathic from hypoxemia. The patient was refus ing aggressive intervention by BiPAP and endotracheal intubation and is saturating on rebreather mas k at 80%. The patient was transferred on the . In the ICU, his white count was 6.7. Today, he has a PICC line in place. He has a urinary catheter. The patient is now on BiPAP. He has severe sepsis with a left shift secondary to bilateral pneumonia. His white count is 6.6, H and H of 8.9 a nd ____, platelet count 55,000. BUN and creatinine 57 over 1.54. His glucose was low at 44. PAST MEDICAL HISTORY: Operations as outlined. FAMILY HISTORY: Noncontributory. SOCIAL HISTORY: Does not smoke, drink or abuse drugs, but in the past he might have smoked. ALLERGIES: NONE TO PENICILLIN, SULFA OR FOODS. MEDICATIONS: Per chart. REVIEW OF SYSTEMS: Noncontributory. PHYSICAL EXAMINATION: GENERAL: The patient is encephalopathic. He is on BiPAP. He is nonverbal, and he is obese and afe brile. SKIN: Without generalized rash. HEENT: Head normocephalic. He has periorbital puffiness. He has BiPAP mask. NECK: Supple. LYMPH NODES: None palpable. CHEST: Decreased breath sounds at the bases with coarse rhonchi. HEART: Grade III/ systolic ejection murmur along left sternal border. ABDOMEN: Soft, nontender without organosplenomegaly or masses. EXTREMITIES: Without cyanosis, clubbing or edema. RECTAL AND GENITAL: Deferred. NEUROLOGIC: The patient is confused, able to move all extremities. He was seen in consultation by Dr. Ring ____ Pulmonary, by ____ in Respiratory and by Dr. Td kline for Cardiology. His white count today is 6.6. His urine shows no nitrite or leukocyte esterase . His chest x-ray, he has patchy bilateral pulmonary airspace and interstitial disease, is unchange d with left worse than right. The patient received vancomycin, was switched to daptomycin. He had an enterococcal URI. We're concerned he may have VRE in the urine, but his platelet count is quite low. He is currently on daptomycin. He had received also cefepime. His blood cultures are pending . Blood cultures so far are negative. I will dictate my findings to the hospitalist as well as to the aforementioned consultants. Dictated By: KANWAL BECKER MD, JD/RITO Conf#: [id number] DID#: [id number]
--- NOTE | 2016-12-26 06:58 | DES ---
DATE OF ADMISSION: 12/24/2016 DATE OF : 12/25/2016 DATE OF : 12/25/2016 FINAL DIAGNOSES: A 71-year-old male who was sent to us from [place] for respiratory failure with the followin. Acute respiratory failure. 2. Severe sepsis with bandemia secondary to bilateral pneumonia causing #1. 3. Bilateral pneumonia. 4. Congestive heart failure. 5. Diabetes mellitus with poor control. 6. Chronic thrombocytopenia with megaloblastosis as well as hypochromasia concerning for probable l iver injury of chronic liver disease. 7. Dyslipidemia. 8. Obesity. 9. Positive methicillin-resistant Staphylococcus aureus, nares. 10. Chronic kidney disease, rule out acute renal failure. 11. Chronic hypothyroidism. 12. Hypertension. 13. History of ____ cell carcinoma of the lung, status post radiation and chemotherapy. 14. Acute encephalopathy secondary to hypoxia. Note that pneumonia could be obstructive pneumonia secondary to the ____ cell carcinoma of the lung. PRELIMINARY CAUSE OF : Respiratory failure. HOSPITALIZATION COURSE: Full details are available in the chart for review, but in summary, this pa tietimoteo had a very short stay in the hospital under my care, was transferred to me from [facility] [place] for severe respiratory failure that was not amenable to simple mask. The patient needed BiPAP therapy and even endotracheal intubation. However, the patient when he first arrived was quite lucid and made it clear that he did not want either of these interventions. Based on the fact that he was still somewhat encephalopathic despite the fact that he was very lucid, I c ommunicated with his family and his , and they made decision to respect his wishes and made him a DO NOT INTUBATE and a DO NOT RESUSCITATE. They did, however, consent to BiPAP therapy if the gia ent agreed to it. Hence the patient was maintained on a simple mask. This was with the understandi ng that the patient might if he didn't get the interventions required. As his mentation worsene d, he was started on BiPAP, which somewhat improved his oxygenation, but even while on the therapy, the patient was quite somnolent, and in his still lucid intervals, he fought to have the mask remove d, and he required nursing staff constantly at the bedside to keep him from removing the mask. He w as continued on aggressive antibiotic regimen, aggressive diuresis regimen as his kidney function to lerated to help improve his pulmonary status. However, earlier today when his family came to visit, they saw his struggle, and apparently he has had a long history dealing with ____ cell cancer of th e lung, and the family made a decision to place him on comfort measures only. They made a decision to stop all aggressive care and focus on eliminating air hunger and pain control. The patient was t aken off the BiPAP mask, and he lasted less than 2 hours before flat-lining on the monitor. I prono unced him ____ about 1830 hours. The family was at the bedside during his final hours and leonard gutierrez the time of pronouncement. All questions were answered. Overall critical care time spent evaluating this patient today was more than 1.5 hours. For further information and clarification, please review the patient's chart. Dictated By: NELSON GALLO MD, BA/RITO Conf#: [id number] DID#: [id number]
--- NOTE | 2016-12-26 15:17 | RADRPT ---
Echocardiogram Report Patient Name: MAC SINCLAIR Gender: Male Date: 1945 Study Date: 25-Dec-2016 Parts Product Analyst: Location: 109 Ref. Physician: NELSON GALLO Quality: Technically Difficult Study Procedures: Transthoracic echocardiogram with complete 2D, M-Mode, and doppler examination. Indications: Resp. Failure. 2D/M Mode Doppler Measurement Value Normal Ranges Measurement Value Normal Ranges LVIDd 2D 4.4 3.5 - 5.6 cm AV Peak Jono 1.3 m/sec LVIDs 2D 2.8 2.1 - 4.1 cm AV Peak PG 7.0 mmHg FS 2D 37.6 % LVOT Peak Jono 0.8 m/sec LVPWd 2D 1.1 0.6 - 1.1 cm LVOT Peak PG 2.0 mmHg IVSd 2D 1.0 0.6 - 1.1 cm MV E Peak Jono 0.7 m/sec IVS/LVPW 2D 1.0 TR Peak Jono 3.0 m/sec AoR Diam 2D 2.6 2.0 - 3.7 cm TR Peak PG 37.0 mmHg LA/Ao 2D 1 0 - 1 EDV 2D 87.5 cm3 ESV 2D 21.3 cm3 LA Dimen 2D 3.3 2.3 - 4.0 cm Findings Left Ventricle: Normal left ventricular systolic function. Overall, normal left ventricular systolic function. Not all segments visualized. Left ventricular wall thickness upper limits of normal. Ejection fraction is visually estimated at 50 %. Right Ventricle: Mild enlargement of right ventricle. Left Atrium: The left atrium is normal in size. Right Atrium: The right atrium is normal in size. Mitral Valve: Mild mitral leaflet calcification. Mild mitral annular calcification. Trace mitral regurgitation. Aortic Valve: Trileaflet aortic valve. Trace aortic valve regurgitation. Tricuspid Valve: Estimated peak PA systolic pressure 46 mmHg. There is mild tricuspid regurgitation. Pulmonic Valve: Pulmonic valve not well visualized. There is trace pulmonic regurgitation. Pericardium: Normal pericardium with no significant pericardial effusion. Aorta: Normal aortic root. IVC: Normal size and normal respiratory collapse consistent with normal right atrial pressure. Conclusions 1.Normal left ventricular systolic function. Overall, normal left ventricular systolic function. Not all segments visualized. Left ventricular wall thickness upper limits of normal. Ejection fraction is visually estimated at 50 %. 2.Mild mitral leaflet calcification. Mild mitral annular calcification. Trace mitral regurgitation. 3.Trileaflet aortic valve. Trace aortic valve regurgitation. 4.Estimated peak PA systolic pressure 46 mmHg. There is mild tricuspid regurgitation. Electronically Signed By: Agustin Berman 26-Dec-2016 15:16:45 -7700 Patient Name: MAC SINCLAIR Study Date: 25-Dec-2016 [id number]
[2016-12-26 17:11] LABS: MICROALBUMIN 8.7 mg/dL
== END 2016-12-25 20:21 | disposition expired | DRG 871 ==
LOC: ICU 14:23
PROVIDERS: ADMIT Family Medicine; ATTEND Family Medicine
PROC: 5A09357 Assistance with Respiratory Ventilation, Less than 24 Consecutive Hours, Continuous Positive Airway Pressure (ICD-10-PCS; principal; 2016-12-24)
DX: A41.9 Sepsis, unspecified organism (principal); J18.9 Pneumonia, unspecified organism; J96.01 Acute respiratory failure with hypoxia; N17.9 Acute kidney failure, unspecified; G93.40 Encephalopathy, unspecified; I13.0 Hypertensive heart and chronic kidney disease with heart failure and stage 1 through stage 4 chronic kidney disease, or unspecified chronic kidney disease; D69.6 Thrombocytopenia, unspecified; I50.9 Heart failure, unspecified; E87.1 Hypo-osmolality and hyponatremia; J44.9 Chronic obstructive pulmonary disease, unspecified; R65.20 Severe sepsis without septic shock; Z85.118 Personal history of other malignant neoplasm of bronchus and lung; E11.9 Type 2 diabetes mellitus without complications; N18.9 Chronic kidney disease, unspecified; D50.8 Other iron deficiency anemias; K76.9 Liver disease, unspecified; E03.9 Hypothyroidism, unspecified; Z66 Do not resuscitate; Z22.322 Carrier or suspected carrier of Methicillin resistant Staphylococcus aureus
CPT/HCPCS: 36600; 71010; 80048; 80061; 80069; 81001; 81003; 82043; 82550; 82553; 82803; 82962; 83036; 83605; 83735; 83930; 83935; 84100; 84155; 84300; 84484; 85025; 85610; 85730; 87040; 87081; 87086; 93306; 93970; 94640; 94660; 94664; J0692; J1940; J2060; J2270; J2405; J2997; J3370; J7040; J7042; J7050